=== PATIENT | female | born 1990 | race Caucasian/White ===

== ENCOUNTER 2018-02-28 18:36 | Emergency (ER) | payer MEDICAID ==
[~2018-02-28] VITALS: Ht 162.6 cm; Wt 96.6 kg
[2018-02-28 18:52] VITALS: BP 169/86
--- NOTE | 2018-02-28 19:00 | NUR ---
Patient ambulated with steady gait to rm 2
--- NOTE | 2018-02-28 19:10 | NUR ---
ASSUMED CARE OF PT AT THIS TIME. C/O INTERMITTENT SUB-STERNAL CP (TIGHTNESS) RADIATING TO THE RIGHT SHOULDER AND ANXIETY X 1 WEEK WORSENING OVER THE LAST 12 HOURS. AAOX4 WITH EVEN AND STEADY GAIT; LUNGS CLEAR BL; HR EVEN AND REGULAR; PATIENT STATES PAIN OF 8/10; VSS; PATIENT POSITIONED FOR COMFORT; HOB ELEVATED; BEDRAILS UP X2; BED DOWN. ER MD MADE AWARE OF PT STATUS. WILL CONTINUE TO MONITOR.
--- NOTE | 2018-02-28 19:32 | NUR ---
Dr. Kuo evaluating patient at bedside.
[2018-02-28] MEDS ORDERED: LORazepam 2 MG/ML VIAL IM ONE (19:50)
[2018-02-28 20:15] VITALS: BP 139/67
--- NOTE | 2018-02-28 20:15 | NUR ---
Patient discharged with v/s stable. Written and verbal after care instructions given and explained. Patient verbalized understanding. Ambulatory with steady gait. All questions addressed prior to discharge. Advised to follow up with PMD.
== END 2018-02-28 20:15 | disposition home or self-care (01) ==
LOC: MED 18:36
DX: F41.9 Anxiety disorder, unspecified (principal); Z90.49 Acquired absence of other specified parts of digestive tract; I10 Essential (primary) hypertension
CPT/HCPCS: 93005; 96372; 99284; J2060

== ENCOUNTER 2018-03-28 09:38 | Emergency (ER) | payer MEDICAID ==
[~2018-03-28] VITALS: Ht 162.6 cm; Wt 95.3 kg
[2018-03-28 09:49] VITALS: BP 178/107
--- NOTE | 2018-03-28 10:15 | NUR ---
C/O 10/10 FLANK PAIN RADIATING TO LOWER ABD PAIN ASSOCIATED WITH N/V, "FEELS LIKE CRAMPING BURNING PAIN." HX: HTN, KIDNEY STONES, CHOLEECYSTECTOMY. DENIES N/V/D; SKIN IS PINK/WARM/DRY; AAOX4 WITH EVEN AND STEADY GAIT; LUNGS CLEAR BL; HR EVEN AND REGULAR; PT DENIES ANY FEVER, CP, SOB, OR COUGH AT THIS TIME; PATIENT STATES PAIN OF 10/10 AT THIS TIME; VSS; PATIENT POSITIONED FOR COMFORT; HOB ELEVATED; BEDRAILS UP X2; BED DOWN. ER MD MADE AWARE OF PT STATUS.
--- NOTE | 2018-03-28 10:17 | NUR ---
Dr. Aguirre evaluating patient at bedside.
[2018-03-28] MEDS ORDERED: NACL 0.9% 1,000 ML IV SCH (10:27)
[2018-03-28] MEDS ORDERED: ONDANSETRON 4 MG/2 ML VIAL IVP ONE (10:30)
[2018-03-28] MEDS ORDERED: MORPHINE SULFATE 4 MG/ML SYR IVP ONE (10:30)
[2018-03-28] MEDS ORDERED: KETOROLAC 30 MG/ML VIAL IVP ONE (10:30)
[2018-03-28 10:54] LABS: APPEARANCE,URINE CLEAR (CLEAR); BILIRUBIN,URINE NEGATIVE (NEGATIVE); BLOOD, URINE TRACE-I (NEGATIVE); COLOR,URINE YELLOW (YELLOW); LEUKOCYTE ESTERASE ,URINE NEGATIVE (NEGATIVE); NITRITE, URINE NEGATIVE (NEGATIVE); UGLUCOSE NEGATIVE (NEGATIVE)
[2018-03-28 10:54] LABS: BASOPHILS % (AUTO) 0.4 % (0.0-2.0); EOSINOPHILS # (AUTO) 0.1 K/uL (0-0.4); EOSINOPHILS % (AUTO) 0.9 % (0.0-4.0); HEMATOCRIT 42.3 % (36-48); LYMPHOCYTES # (AUTO) 1.4 K/uL (2.5-16.5); LYMPHOCYTES % (AUTO) 17.4 % (20.5-51.1); MEAN CORPUSCULAR HEMOGLOBIN 34 pg (27-31); MEAN CORPUSCULAR HGB CONC 35 g/dL (33-37); MEAN CORPUSCULAR VOLUME 96.3 fL (80-94); MONOCYTES # (AUTO) 0.5 K/uL (0.8-1.0); MONOCYTES % (AUTO) 6.3 % (1.7-9.3); NEUTROPHILS # (AUTO) 6.1 K/uL (1.8-7.7); PLATELET COUNT (AUTO) 207 K/uL (140-450); RED BLOOD CELL COUNT(AUTO) 4.39 MIL/uL (4.20-5.40); RED CELL DISTRIBUTION WIDTH 12.9 % (11.6-13.7); WHITE BLOOD COUNT (AUTO) 8.1 K/uL (4.8-10.8)
--- NOTE | 2018-03-28 11:05 | NUR ---
pt left for CT per tech via wheelchair.
[2018-03-28 11:10] LABS: RBC,URINE 0-5 (RARE) /HPF (0-5); WBC,URINE 0-5 (RARE) /HPF (0-5)
[2018-03-28 11:22] LABS: ANION GAP 8.4 (8-16); CARBON DIOXIDE 29.5 mmol/L (21-32); CREATININE 0.7 mg/dL (0.6-1.3); POTASSIUM 3.9 mmol/L (3.5-5.1)
[2018-03-28 11:29] LABS: ALBUMIN 3.6 g/dL (3.4-5.0); TOTAL BILIRUBIN 0.4 mg/dL (0.0-1.0)
--- NOTE | 2018-03-28 11:30 | NUR ---
pt stated pain relieved.
--- NOTE | 2018-03-28 12:28 | NUR ---
PT AMBULATES TO BATHROOM.
--- NOTE | 2018-03-28 13:13 | NUR ---
Dr. Aguirre re-evaluating patient at bedside.
[2018-03-28 13:44] VITALS: BP 138/82
--- NOTE | 2018-03-28 13:45 | NUR ---
Patient discharged with v/s stable. Written and verbal after care instructions given and explained. Patient alert, oriented and verbalized understanding of instructions. Ambulatory with steady gait. All questions addressed prior to discharge. ID band removed. Patient advised to follow up with PMD. Rx of reglan given. Patient educated on indication of medication including possible reaction and side effects. Opportunity to ask questions provided and answered.
== END 2018-03-28 13:41 | disposition home or self-care (01) ==
LOC: MED 09:38
DX: R10.9 Unspecified abdominal pain (principal); R11.0 Nausea; I10 Essential (primary) hypertension; Z90.49 Acquired absence of other specified parts of digestive tract; Z87.442 Personal history of urinary calculi
CPT/HCPCS: 36415; 74176; 80053; 81001; 81025; 83690; 85025; 96374; 96375; 99285; J1885; J2270; J2405; J7030

== ENCOUNTER 2018-04-19 21:46 | Emergency (ER) | payer MEDICAID ==
[~2018-04-19] VITALS: Ht 162.6 cm; Wt 97.2 kg
[2018-04-19 21:50] VITALS: BP 169/105
--- NOTE | 2018-04-19 21:50 | NUR ---
PT PRESENTS TO ED WITH N/V/D X12 HRS. PT STATES EATING "BAD" GU[employer] FOOD AT 10:30 AM AND HAD N/V/D FOR 1 HR. PT STATES NO N/V/D AT THIS TIME. PT STATES HAVING 7/10 ABD PAIN AT 12PM. PT STATES 0/10 PAIN AT THIS TIME. A&OX4. AFEBRILE. VSS. ER AWARE. CONTINUE TO MONITOR.
--- NOTE | 2018-04-19 21:59 | NUR ---
PT AMBULATED TO ED BED 5
[2018-04-19] MEDS ORDERED: NACL 0.9% 1,000 ML IV ONE (22:05)
[2018-04-19] MEDS ORDERED: KETOROLAC 60 MG/2 ML VIAL IM ONE (22:10)
[2018-04-19 22:34] VITALS: BP 169/105
--- NOTE | 2018-04-19 22:34 | NUR ---
Patient discharged with v/s stable. Written and verbal after care instructions given and explained. Patient alert, oriented and verbalized understanding of instructions. Ambulatory with steady gait. All questions addressed prior to discharge. ID band removed. Patient advised to follow up with PMD. Rx of Motrin and Zofran given. Patient educated on indication of medication including possible reaction and side effects. Opportunity to ask questions provided and answered.
== END 2018-04-19 22:34 | disposition home or self-care (01) ==
LOC: MED 21:46
DX: R11.2 Nausea with vomiting, unspecified (principal); R19.7 Diarrhea, unspecified; R10.13 Epigastric pain; I10 Essential (primary) hypertension; Z90.49 Acquired absence of other specified parts of digestive tract
CPT/HCPCS: 96372; 99283; J1885; 81002; 81025

== ENCOUNTER 2018-05-12 21:25 | Emergency (ER) | payer SELFPAY ==
[~2018-05-12] VITALS: Ht 162.6 cm; Wt 94.8 kg
[2018-05-12 21:29] VITALS: BP 186/112
[2018-05-12 23:45] VITALS: BP 164/84
[2018-05-13] MEDS: KETOROLAC 30 MG/ML VIAL IVP ONE (00:56)
== END 2018-05-13 00:56 | disposition left against medical advice (07) ==
LOC: MED 21:25
DX: R07.9 Chest pain, unspecified (principal); F41.9 Anxiety disorder, unspecified; R06.00 Dyspnea, unspecified; Z53.21 Procedure and treatment not carried out due to patient leaving prior to being seen by health care provider
CPT/HCPCS: 71045; 81025; 93005; 99281; 99282; 99283; 99284

== ENCOUNTER 2019-01-16 17:27 | Emergency (ER) | payer MEDICAID ==
[~2019-01-16] VITALS: Ht 162.6 cm; Wt 95.7 kg
[2019-01-16 17:44] VITALS: BP 148/98
--- NOTE | 2019-01-16 18:38 | NUR ---
requesting medication refill
[2019-01-16 19:06] VITALS: BP 139/93
--- NOTE | 2019-01-16 19:07 | NUR ---
Patient discharged with v/s stable. Written and verbal after care instructions given and explained. Patient alert, oriented and verbalized understanding of instructions. Ambulatory with steady gait. All questions addressed prior to discharge. ID band removed. Patient advised to follow up with PMD. Rx of lisinopril/ motrin given. Patient educated on indication of medication including possible reaction and side effects. Opportunity to ask questions provided and answered.
== END 2019-01-16 19:05 | disposition home or self-care (01) ==
LOC: MED 17:27
DX: M25.562 Pain in left knee (principal); I10 Essential (primary) hypertension; Z76.0 Encounter for issue of repeat prescription
CPT/HCPCS: 99282; 99283